=== PATIENT | female | born 1950 | race Caucasian/White ===

== ENCOUNTER → 2017-09-06 | Outpatient (CLI) | payer MEDICARE ==
--- NOTE | 2017-09-06 12:47 | RADRPT ---
EXAM DATE: 09/06/2017 12:28 PM EDT AGE/SEX: 67 years / Female INDICATIONS: Abnormal chest x-ray CLINICAL DATA: This is the patient's initial encounter. Patient reports that signs and symptoms have been present for 1 day and indicates a pain score of 0/10. MEDICAL/SURGICAL HISTORY: . HBP None. RADIATION DOSE: 6.61 CTDI (mGy) COMPARISON: No prior exams available for comparison. TECHNIQUE: Multiple contiguous axial images were obtained through the chest without contrast. Image s were obtained in suspended respiration using multiple row detector helical technique. Using automa andrez exposure control and adjustment of the mA and/or kV according to patient size, radiation dose was kept as low as reasonably achievable to obtain optimal diagnostic quality images. FINDINGS: Lungs: There are 2 small focal densities seen in the right posterior upper lung which appear to be a ssociated with the superior aspect of the major fissure measuring up to 5 mm. The lungs appear otherw ise clear. Mediastinum: There is good visualization of the great vessels of the middle mediastinum. No evidenc e of mediastinal or hilar adenopathy/mass. Coronary artery calcifications are present. Pleurae: No evidence of focal thickening or pleural effusion. Axillae: Unremarkable. Bony Structures: Unremarkable. Miscellaneous: The examination was extended to include the upper abdomen, and both adrenal glands ar e normal in size and configuration. CONCLUSION: 1. 2 small focal densities measuring up to 5 mm in the right upper lung likely related to focal area s of pleural thickening at the major fissure. It is thought these can be followed with a noncontrast CT examination in 6-12 months. 2. Atherosclerotic calcifications in the arterial system including the coronary arteries. Electronically signed by: Gagandeep Valentino MD 09/06/2017 12:46 PM EDT
== END ==
LOC: HRAD 11:58
PROVIDERS: ATTEND Family Medicine
DX: R91.8 Other nonspecific abnormal finding of lung field (principal)
CPT/HCPCS: 71250